=== PATIENT | male | born 1985 | race Caucasian/White ===

== ENCOUNTER 2025-02-16 01:20 | Emergency (ER) | payer BC, SELFPAY ==
[2025-02-16 01:31] VITALS: BP 113/66; PULSE 50; TEMP 36.5; O2SAT 99; BMI 22.8
--- NOTE | 2025-02-16 01:36 | PC.NURSE ---
Swelling noted to left side of face. Reddened patches to bilateral arms. Denies any new soap, lotions. food or medication.
--- NOTE | 2025-02-16 01:52 | ED.GENADUL1 ---
HPI HPI - General Adult General Chief complaint: Allergic Reaction Stated complaint: ALLERGIC REACTION Time Seen by Provider: 02/16/25 01:27 Source: patient Mode of arrival: walk-in History of Present Illness HPI narrative: Patient is a healthy 40-year-old male presenting to the emergency department for concerns of allergic reaction. 4.5 hours ago the patient noticed an itchy rash on his arms. He also noticed that his eyes were puffy and he had some mild wheezing. He denies any associated nausea, vomiting, or abdominal pain. No tongue swelling, lip swelling, trouble swallowing, or changes in his voice. He denies history of previous allergic reactions or episodes of anaphylaxis. He denies any new medications, soaps, detergents, or foods. He took an Nirmala at home, which seem to mildly improve his symptoms. He is otherwise asymptomatic without fevers, chills, or other concerning symptoms. Related Data Home Medications ?Medication ?Instructions ?Recorded ?Confirmed buprenorphine 24 mg/0.48 mL 24 mg subcut 02/16/25 solution,exten.rel.subcutaneous syringe (Brixadi Weekly) citalopram 10 mg tablet 10 mg PO DAILY 02/16/25 02/16/25 gabapentin 300 mg capsule 300 mg PO DAILY PRN pain 02/16/25 02/16/25 Allergies Allergy/AdvReac Type Severity Reaction Status Date / Time No Known Drug Allergies Allergy Verified 02/16/25 01:31 Review of Systems ROS Status of ROS 10 or more systems reviewed and unremarkable except as noted in history and below PFSH PFSH Social History Little interest or pleasure in doing things: not at all Feeling down, depressed, or hopeless: not at all Exam Narrative Exam Narrative: CONSTITUTIONAL: Well-appearing, answering questions and following commands appropriately SKIN: Mild urticaria/wheals on the bilateral forearms. EYES: Mild bilateral periorbital edema without overlying erythema or cellulitic changes. EARS, NOSE, THROAT: No trismus. No tongue or lip swelling. No uvular swelling. No neck swelling. Speaking with a normal voice. Speaking full sentences. RESPIRATORY: Clear to auscultation bilaterally, no wheezes, crackles, or stridor, no use of accessory muscles CARDIOVASCULAR: Normal rate and regular rhythm. There is no S3, S4, murmur, rub. GASTROINTESTINAL: Abdomen was soft, non-tender, and non-distended. There is no guarding or rebound tenderness MUSCULOSKELETAL: Bilateral forearms are mildly edematous. NEUROLOGIC: Patient is awake and alert. Ambulates with steady gait. Constitutional Vital Signs, click to edit/add: Last Vital Signs Temp 97.7 F 02/16/25 01:31 Pulse 50 L 02/16/25 01:31 Resp 20 02/16/25 01:31 BP 113/66 02/16/25 01:31 Pulse Ox 99 02/16/25 01:31 O2 Del Method Room Air 02/16/25 01:31 Course Vital Signs Vital signs: Vital Signs Temperature 97.7 F 02/16/25 01:31 Pulse Rate 50 L 02/16/25 01:31 Respiratory Rate 20 02/16/25 01:31 Blood Pressure 113/66 02/16/25 01:31 Pulse Oximetry 99 02/16/25 01:31 Oxygen Delivery Method Room Air 02/16/25 01:31 Temperature 97.7 F 02/16/25 01:31 Pulse Rate 50 L 02/16/25 01:31 Respiratory Rate 20 02/16/25 01:31 Blood Pressure 113/66 02/16/25 01:31 Pulse Oximetry 99 02/16/25 01:31 Oxygen Delivery Method Room Air 02/16/25 01:31 Medical Decision Making MDM Narrative Medical decision making narrative: Patient is a healthy 40-year-old male presenting to the emergency department with an allergic reaction beginning 4.5 hours ago. Vital signs are within normal limits. He is afebrile and hemodynamically stable. Examination as noted above. Patient's presentation is consistent with a mild allergic reaction. He has no evidence of airway involvement, I have no concern for an acute airway compromise. He does not meet criteria for anaphylaxis. It has been 4.5 hours since onset of his symptoms, I do not anticipate his symptoms should worsen. Patient will be given oral dexamethasone, oral famotidine, and oral Benadryl while here in the ED. I do believe the patient is stable for discharge at this time. Patient's presentation is most likely consistent with an allergic reaction. They were instructed to follow up with his PCP as needed. Return precautions were given including any new or worsening symptoms, including worsening shortness of breath or facial swelling. They were instructed take Benadryl at home for persisting symptoms. Patient understands and agrees to the plan. Differential Diagnosis Differential Diagnosis: acute allergic reaction, hypersensitivity reaction Discharge Plan Discharge Chief Complaint: Allergic Reaction Clinical Impression: Allergic reaction Qualifiers: Encounter type: initial encounter Qualified Code(s): T78.40XA - Allergy, unspecified, initial encounter Patient Disposition: Home, Self-Care Time of Disposition Decision: 01:48 Condition: Good Prescriptions / Home Meds: No Action Brixadi 24 mg/0.48 mL solution, extended rel syringe 24 mg SUBCUT citalopram 10 mg tablet 10 mg PO DAILY gabapentin 300 mg capsule 300 mg PO DAILY PRN (Reason: pain) Print Language: Pashto Instructions: General Allergic Reaction (ED) Referrals: Physician,Non-Staff, MD [Primary Care Provider] - 1 week
[2025-02-16] MEDS: DEXAMETHASONE 4 MG TABLET 12 MG PO (01:53)
[2025-02-16] MEDS: DIPHENHYDRAMINE HCL 25 MG CAPSULE 50 MG PO (01:53)
[2025-02-16] MEDS: FAMOTIDINE 20 MG TABLET PO (01:53)
== END 2025-02-16 01:56 | disposition home or self-care (01) ==
PROVIDERS: Emergency Provider Student in an Organized Health Care Education/Training Program
DX: T78.40XA Allergy, unspecified, initial encounter (principal); R21 Rash and other nonspecific skin eruption; R06.2 Wheezing
CPT/HCPCS: 99284; J8540